=== PATIENT | male | born 1985 | race Caucasian/White ===

== ENCOUNTER 2019-07-02 08:31 | Emergency (ER) | payer OTHER ==
[~2019-07-02] VITALS: Ht 160 cm; Wt 81.6 kg
[2019-07-02] MEDS ORDERED: AUGMENTIN XR 11 EACH (08:44)
[2019-07-02] MEDS ORDERED: CEFTRIAXONE2 GM (08:44)
== END 2019-07-02 10:01 | disposition home or self-care (01) ==
LOC: ER 08:31
DX: N48.1 Balanitis (principal)